=== PATIENT | female | born 1965 | race Caucasian/White ===

== ENCOUNTER 2017-01-17 12:58 | Emergency (ER) | payer OTHER ==
[~2017-01-17 12:58] MED LIST: ALBUTEROL HFA60 DOSE IN; CYCLOBENZAPRINE10 MG PO; DICLOFENAC SODI75 MG PO; NIASPAN500 MG PO; NITROSTAT0.4 MG SL; PAXIL10 MG PO
--- NOTE | 2017-01-17 15:57 | ED CLINICAL REPORT ---
Clinical Report - Physicians/Mid Levels [facility] [address] [place] [address] 01/17/2017 13:00 Patient: NKECHI DHILLON Time Seen: 1325. Arrived- By private vehicle. Historian- patient. HISTORY OF PRESENT ILLNESS Is still present and worsening. Chief Complaint: HEADACHE. This started yesterday. It was gradual in onset and has been constant but is not gone now. Patient was last known well (yesterday). Onset during rest. It is described as similar to previous headaches. Located in the right hemicranial region. No neck pain. Not located in the facial region. At its maximum, severity described as severe. When seen in the E.D., severity described as severe. Modifying factors: worsened by bright light and noise; relieved by rest. The patient has had blurred vision in the right eye. The blurred vision involving the right eye has been severe and has been associated with photophobia. She has had photophobia and nausea. No numbness, weakness or vomiting. Similar symptoms previously: Many times. Recent medical care: ( called her doctor who told her to come in. state she is out of her imitrex). Not recently seen/assessed. REVIEW OF SYSTEMS No fever or chest pain. All systems otherwise negative, except as recorded above. PAST HISTORY See nurses notes. SOCIAL HISTORY Never smoker. No alcohol use or drug use. No recent travel. Is a local resident. FAMILY HISTORY (no family hx of glaucoma). ADDITIONAL NOTES The nursing notes have been reviewed. PHYSICAL EXAM Vital Signs: 01/17/2017 13:20 BP: 186/88. HR: 87. RR: 17. O2 saturation: 96%. Temp: 98.5 F. Blood pressure normal. Oxygen saturation normal. Appearance: Alert. No acute distress. Eyes: Pupils equal, round and reactive to light. Eyes normal inspection. No conjunctival findings. (no injection. PERRLA at 4 mm and reactive. normal retinal vasculature. No papilledema. no cell and flare. eye is not steamy.). ENT: Ears normal. Nose normal. Pharynx normal. Neck: Normal inspection. Neck supple. CVS: Normal heart rate and rhythm. Heart sounds normal. Pulses normal. Respiratory: No respiratory distress. Breath sounds normal. Abdomen: Soft and nontender. No organomegaly. Back: Normal inspection. Skin: Skin warm and dry. Normal skin color. No rash. Normal skin turgor. Extremities: Extremities exhibit normal ROM. No lower extremity edema. Neuro: Oriented X 3. Alert. Mood/affect normal. Speech normal. Cranial nerves normal (as tested). No cerebellar findings. No motor deficit. No sensory deficit. Reflexes normal. PROGRESS AND PROCEDURES Course of Care: Patient is a pleasant 51 yo female presenting for evaluation of headache. Symptoms are the same as prior headaches with the same side and visual symptoms previously. Patient as been evaluated for SAH, increased ICP, meningitis, and space occupying lesion. Patients exam and history are not consistent with these entities. Patient is agreeable to treatment for headache. Medications have been ordered after reviewing allergies and intolerances. Patient will be reevaluated after the medications have been given. Patient was reevaluated and found to be significantly improved. Vision improved in eye. No concern for glaucoma. Patient reports being able to return home and follow up with doctor. Repeat examination continues to be benign. I discussed with the patient workup, diagnosis, home care, follow-up, and return precautions. All questions have been answered. The patient expressed understanding of these instructions and was agreeable to them. Do not feel patient needs to be admitted to the hospital or require further ED workup/evaluation. Disposition: Discharged. Condition: good. CLINICAL IMPRESSION 01/17/2017 15:49 BP: 169/71. HR: 75. O2 saturation: 96%. 01/17/2017 14:59 BP: 150/81. HR: 80. RR: 15. O2 saturation: 95%. Pain level now: 8/10. Hypertensive. Oxygen saturation normal. Acute migraine headache with ophthalmoplegia- poorly controlled (right sided). Essential hypertension. INSTRUCTIONS Warnings: GENERAL WARNINGS: Return or contact your physician immediately if your condition worsens or changes unexpectedly, if not improving as expected, or if other problems arise. SPECIFICALLY, return if you develop fever, vomiting, numbness, weakness, difficulty thinking, visual disturbances, fainting or extreme fatigue. Follow-up: Return to the emergency department as needed. Follow up with your doctor in two days. Reason for referral: recheck today's concerns. Summary of care provided to patient via paper. Screening today revealed the patient's blood pressure to be in the normal range. The patient should follow up with a primary care provider for blood pressure management. Understanding of the discharge instructions verbalized by patient. (Electronically signed by Frandy Tanner Dr. 01/24/2017 13:56)
--- NOTE | 2017-01-17 15:57 | ED NURSING NOTES ---
Clinical Report - Nurses [facility] [address] [place] [address] 01/17/2017 13:00 [id number] Triage time 13:14 Jan 17 2017. Acuity: LEVEL 3. Chief Complaint: VISUAL DISTURBANCES. 13:20 01/17/17. Alert. SEPSIS SCREEN: Sepsis Screen. Negative (no infection suspected/documented). FLEI COMA SCORE: [place] Coma Scale: 15- eyes open spontaneously (4); best verbal response- oriented x 4 (5); best motor response- obeys commands (6). --13:20 Caron Schmitt 13:20 01/17/17. BP: 186/88. HR: 87. RR: 17. O2 saturation: 96%. Temp: 98.5 F. Pain level now 9/10. --13:20 Caron Schmitt. Weight: 166.9 kg stated. Height/Length: 67 inches Per Patient. BMI: 57.7. --13:20 Caron Schmitt. Medications Albuterol Sulfate HFA Inhalation, as needed. Cyclobenzaprine HCl Oral 10 mg, as needed. --13:17 Caron Schmitt OxyCODONE HCl Oral 10 mg. --13:17 Caron Schmitt Diclofenac Oral 75 mg BID, usually takes at hs only. --13:18 Caron Schmitt difluoric sodium. --13:18 Caron Schmitt Qvar Inhalation, 2xdaily. --13:18 Caron Schmitt. Medication/allergy information source: the patient. --13:20 Caron Schmitt. Allergies Phenol. Toradol. (rash after taking for 6 months straight) --13:18 Caron Schmitt. History Arrived by private vehicle. Historian: patient. Accompanied by spouse. Primary physician (Caryn Lee in [place]). This started yesterday. ( Pt reports she has a "migraine" that started yesterday. Reports loss of vision in R eye. Pt reports that she has regular migraines. Last migraine with loss of vision was in 1999. Pt then started taking imitrex, stopped taking in 2003. FAST exam negative). She has had a headache. No impaired speech, trouble walking or swallowing, dizziness or weakness. No numbness. 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 PAST MEDICAL HX: No history of stroke, diabetes mellitus or hypertension. No history of seizures. Immunizations: up-to-date. SOCIAL HX: Never smoker. Occasional alcohol use. No drug use. FALL RISK ASSESSMENT: Fall risk assessment completed. No fall risk identified. NUTRITIONAL RISK ASSESSMENT: The nutritional risk assessment revealed no deficiencies. FUNCTIONAL ASSESSMENT: Functional assessment: no impairments noted. LEARNING NEEDS ASSESSMENT: The learning needs assessment revealed no barriers. SKIN INTEGRITY ASSESSMENT: Skin integrity risk assessment completed. No skin integrity risk identified. --13:20 Caron Schmitt. PROBLEMS: Chest Pain. Migraine Headache. Sarcoidosis. SI joint dysfunction, left side. Spinal L5, S1 radiculopathy left side. --13:19 Caron Schmitt. ADDITIONAL SURGERIES: Cholecystectomy. . Hernia Repair. --13:19 Caron Schmitt. Assessment The patient states feels the same. --13:20 Caron Schmitt. Interventions ID band on patient. --13:20 Caron Schmitt. PHYSICAL ASSESSMENT 13:01/17/17. Ambulatory to room. Baseline functional status: usually alert, oriented x4 and cooperative. Verbal response: usually clear and appropriate. Motor response: usually steady gait and moves all extremities equally GENERAL / NEURO / PSYCH: Awake. Oriented X 4. Alert. Appears in no acute distress. Speech normal. Mood/affect normal. Moves all extremities equally. No motor deficit. Pupillary exam: Pupils are equal, round, and reactive to light. Right pupil 3mm, round and briskly reactive to light directly. Left pupil: 3mm, round and briskly reactive to light directly. HEENT: No facial asymmetry noted. Pupils equal, round and reactive to light. Pharynx within normal limits. RESPIRATORY: Respirations not labored. CVS: Capillary refill less than 2 seconds. SKIN: Skin is intact, warm and dry. --13:21 Caron Schmitt. NURSING PROGRESS NOTES 13:01/17/17. ( Lights dimmed). --15:00 Caron Schmitt 13:22 01/17/17. The plan of care for this patient has been created. Pulse oximeter and NIBP monitor placed on patient; monitor alarms on. Head of bed elevated. Reassurance given. Two patient identifiers checked. Call light placed in reach. Side rails up x 1. Bed placed in lowest position. Brakes of bed on. Patient ready for evaluation- chart flagged and ED physician and TAKE OFF MAN notified. --13:22 Caron Schmitt 13:58 01/17/2017 Site #1 started via IV in the right hand with an 22g angiocath, with aseptic technique and good blood return; two attempts. Blood drawn: rainbow set. Labeled in the presence of the patient and sent to the lab. Saline lock flushed with 10 mL saline. --13:58 Caron Schmitt 14:07 01/17/2017 Started bag #1 1000 mL IV Fluids IV NS (Saline); at 1000 mL/hr over 1 hour(s) via site #1 via IV pump. Allergies verified and confirmed 5 rights. IV patency established. IV site checked: no pain, redness, or swelling. IV flushed thoroughly pre- and post-medication administration. --14:17 Caron Schmitt 14:09 01/17/2017 Benadryl (DiphenhydrAMINE HCl) IVP 25 mg given over 30 second(s) via site #1. Allergies verified, confirmed 5 rights and sedative warning given to the patient. IV patency established. IV site checked: no pain, redness, or swelling. IV flushed thoroughly pre- and post-medication administration. IVP given by RN. --14:17 Caron Schmitt 14:12 01/17/2017 Decadron IVP 10 mg given over 1 minute(s) via site #1. Allergies verified and confirmed 5 rights. IV patency established. IV site checked: no pain, redness, or swelling. IV flushed thoroughly pre- and post-medication administration. IVP given by RN. --14:17 Caron Schmitt 14:14 01/17/2017 Reglan (Metoclopramide HCl) IVP 10 mg given over 3 minute(s) via site #1. Allergies verified and confirmed 5 rights. IV patency established. IV site checked: no pain, redness, or swelling. IV flushed thoroughly pre- and post-medication administration. IVP given by RN. --14:17 Caron Schmitt 14:59 01/17/17. BP: 150/81. HR: 80. RR: 15. O2 saturation: 95% on room air. Pain level now: 8. --15:00 Caron Scmhitt 15:49 01/17/17. BP: 169/71. HR: 75. O2 saturation: 96% on room air. --15:49 Caron Schmitt 14:59 01/17/17. ( Pt reports that her vision is restored. Pt reports pain has improved and that her normal pain level is 8/10.). --15:59 Caron Schmitt 15:00 01/17/17. ( Warm blanket provided per patient request). --15:00 Caron Schmitt 15:10 01/17/2017 IV Fluids IV NS Discontinued: bag #1 infused. Total amount infused: 1000 mL. --16:10 Caron Schmitt. DISPOSITION / DISCHARGE 16:01/17/17. Departure time: 16:Jan 17 2017. Condition at departure: improved. The goals identified in the patient's plan of care were met. No learning barriers present. Discharge instructions provided and reviewed with the patient. Reviewed warnings (Patient verbalized awareness of warning s/sx listed in dc paperwork.). Treatments reviewed. Reviewed referral to a primary care physician for followup. Patient verbalized understanding. Written instructions provided in Kyrgyz. The patient was discharged by the physician. She was discharged home and accompanied by spouse. She left the Emergency Department ambulatory and via private vehicle. Spouse driving. FALL RISK ASSESSMENT: Fall risk assessment completed. No fall risk identified. --16:09 Caron Schmitt 16:07 01/17/17. BP: 157/79. HR: 81. RR: 14. O2 saturation: 98% on room air. Temp: 98.8 F (oral). Pain level now: 06/04. --16:09 Caron Schmitt. Locked/Released at 01/17/2017 16:11 by Caron Schmitt,
--- NOTE | 2017-01-17 15:57 | ED NURSING NOTES ---
Clinical Report - Nurses [facility] [address] [place] [address] 01/17/2017 13:00 [id number] Triage time 13:14 Jan 17 2017. Acuity: LEVEL 3. Chief Complaint: VISUAL DISTURBANCES. 13:20 01/17/17. Alert. SEPSIS SCREEN: Sepsis Screen. Negative (no infection suspected/documented). FELI COMA SCORE: [place] Coma Scale: 15- eyes open spontaneously (4); best verbal response- oriented x 4 (5); best motor response- obeys commands (6). --13:20 Caron Schmitt 13:20 01/17/17. BP: 186/88. HR: 87. RR: 17. O2 saturation: 96%. Temp: 98.5 F. Pain level now 9/10. --13:20 Caron Schmitt. Weight: 166.9 kg stated. Height/Length: 67 inches Per Patient. BMI: 57.7. --13:20 Caron Schmitt. Medications Albuterol Sulfate HFA Inhalation, as needed. Cyclobenzaprine HCl Oral 10 mg, as needed. --13:17 Caron Schmitt OxyCODONE HCl Oral 10 mg. --13:17 Caron Schmitt Diclofenac Oral 75 mg BID, usually takes at hs only. --13:18 Caron Schmitt difluoric sodium. --13:18 Caron Schmitt Qvar Inhalation, 2xdaily. --13:18 Caron Schmitt. Medication/allergy information source: the patient. --13:20 Caron Schmitt. Allergies Phenol. Toradol. (rash after taking for 6 months straight) --13:18 Caron Schmitt. History Arrived by private vehicle. Historian: patient. Accompanied by spouse. Primary physician (Caryn Lee in [place]). This started yesterday. ( Pt reports she has a "migraine" that started yesterday. Reports loss of vision in R eye. Pt reports that she has regular migraines. Last migraine with loss of vision was in 1999. Pt then started taking imitrex, stopped taking in 2003. FAST exam negative). She has had a headache. No impaired speech, trouble walking or swallowing, dizziness or weakness. No numbness. 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 PAST MEDICAL HX: No history of stroke, diabetes mellitus or hypertension. No history of seizures. Immunizations: up-to-date. SOCIAL HX: Never smoker. Occasional alcohol use. No drug use. FALL RISK ASSESSMENT: Fall risk assessment completed. No fall risk identified. NUTRITIONAL RISK ASSESSMENT: The nutritional risk assessment revealed no deficiencies. FUNCTIONAL ASSESSMENT: Functional assessment: no impairments noted. LEARNING NEEDS ASSESSMENT: The learning needs assessment revealed no barriers. SKIN INTEGRITY ASSESSMENT: Skin integrity risk assessment completed. No skin integrity risk identified. --13:20 Caron Schmitt. PROBLEMS: Chest Pain. Migraine Headache. Sarcoidosis. SI joint dysfunction, left side. Spinal L5, S1 radiculopathy left side. --13:19 Caron Schmitt. ADDITIONAL SURGERIES: Cholecystectomy. . Hernia Repair. --13:19 Caron Schmitt. Assessment The patient states feels the same. --13:20 Caron Schmitt. Interventions ID band on patient. --13:20 Caron Schmitt. PHYSICAL ASSESSMENT 13:01/17/17. Ambulatory to room. Baseline functional status: usually alert, oriented x4 and cooperative. Verbal response: usually clear and appropriate. Motor response: usually steady gait and moves all extremities equally GENERAL / NEURO / PSYCH: Awake. Oriented X 4. Alert. Appears in no acute distress. Speech normal. Mood/affect normal. Moves all extremities equally. No motor deficit. Pupillary exam: Pupils are equal, round, and reactive to light. Right pupil 3mm, round and briskly reactive to light directly. Left pupil: 3mm, round and briskly reactive to light directly. HEENT: No facial asymmetry noted. Pupils equal, round and reactive to light. Pharynx within normal limits. RESPIRATORY: Respirations not labored. CVS: Capillary refill less than 2 seconds. SKIN: Skin is intact, warm and dry. --13:21 Caron Schmitt. NURSING PROGRESS NOTES 13:01/17/17. ( Lights dimmed). --15:00 Caron Schmitt 13:22 01/17/17. The plan of care for this patient has been created. Pulse oximeter and NIBP monitor placed on patient; monitor alarms on. Head of bed elevated. Reassurance given. Two patient identifiers checked. Call light placed in reach. Side rails up x 1. Bed placed in lowest position. Brakes of bed on. Patient ready for evaluation- chart flagged and ED physician and RECORDS MANAGEMENT SPECIALIST notified. --13:22 Caron Schmitt 13:58 01/17/2017 Site #1 started via IV in the right hand with an 22g angiocath, with aseptic technique and good blood return; two attempts. Blood drawn: rainbow set. Labeled in the presence of the patient and sent to the lab. Saline lock flushed with 10 mL saline. --13:58 Caron Schmitt 14:07 01/17/2017 Started bag #1 1000 mL IV Fluids IV NS (Saline); at 1000 mL/hr over 1 hour(s) via site #1 via IV pump. Allergies verified and confirmed 5 rights. IV patency established. IV site checked: no pain, redness, or swelling. IV flushed thoroughly pre- and post-medication administration. --14:17 Caron Schmitt 14:09 01/17/2017 Benadryl (DiphenhydrAMINE HCl) IVP 25 mg given over 30 second(s) via site #1. Allergies verified, confirmed 5 rights and sedative warning given to the patient. IV patency established. IV site checked: no pain, redness, or swelling. IV flushed thoroughly pre- and post-medication administration. IVP given by RN. --14:17 Caron Schmitt 14:12 01/17/2017 Decadron IVP 10 mg given over 1 minute(s) via site #1. Allergies verified and confirmed 5 rights. IV patency established. IV site checked: no pain, redness, or swelling. IV flushed thoroughly pre- and post-medication administration. IVP given by RN. --14:17 Caron Schmitt 14:14 01/17/2017 Reglan (Metoclopramide HCl) IVP 10 mg given over 3 minute(s) via site #1. Allergies verified and confirmed 5 rights. IV patency established. IV site checked: no pain, redness, or swelling. IV flushed thoroughly pre- and post-medication administration. IVP given by RN. --14:17 Caron Schmitt 14:59 01/17/17. BP: 150/81. HR: 80. RR: 15. O2 saturation: 95% on room air. Pain level now: 8. --15:00 Caron Schmitt 15:49 01/17/17. BP: 169/71. HR: 75. O2 saturation: 96% on room air. --15:49 Caron Schmitt 14:59 01/17/17. ( Pt reports that her vision is restored. Pt reports pain has improved and that her normal pain level is 8/10.). --15:59 Caron Schmitt 15:00 01/17/17. ( Warm blanket provided per patient request). --15:00 Caron Schmitt 15:10 01/17/2017 IV Fluids IV NS Discontinued: bag #1 infused. Total amount infused: 1000 mL. --16:10 Caron Schmitt. DISPOSITION / DISCHARGE 16:01/17/17. Departure time: 16:Jan 17 2017. Condition at departure: improved. The goals identified in the patient's plan of care were met. No learning barriers present. Discharge instructions provided and reviewed with the patient. Reviewed warnings (Patient verbalized awareness of warning s/sx listed in dc paperwork.). Treatments reviewed. Reviewed referral to a primary care physician for followup. Patient verbalized understanding. Written instructions provided in Frisian. The patient was discharged by the physician. She was discharged home and accompanied by spouse. She left the Emergency Department ambulatory and via private vehicle. Spouse driving. FALL RISK ASSESSMENT: Fall risk assessment completed. No fall risk identified. --16:09 Caron Schmitt 16:07 01/17/17. BP: 157/79. HR: 81. RR: 14. O2 saturation: 98% on room air. Temp: 98.8 F (oral). Pain level now: 06/04. --16:09 Caron Schmitt. Locked/Released at 01/17/2017 16:11 by Caron Schmitt,
--- NOTE | 2017-01-17 15:58 | ED ORDER SUMMARY ---
..... Patient: NKECHI DHILLON OrderSheet [facility] VisitID: [id number] [address] [place] [address] 51y, F Registration Date/Time: 01/17/2017 ORDER SHEET Weight: 166.9 kg (stated) Allergies: Phenol, Toradol GENERAL ORDERS: Pulse oximeter (13:39 01/17/2017 Mustapha Crouch) (13:58 ASchmuck) MEDICATION ORDERS: IV FLUIDS: IV NS : initial bolus 1000 mL (1000 mL/hr), then none - for X1 (NOW) (13:38 01/17/2017 Mustapha Crouch) (14:17 ASchmuck) Benadryl IV 25 mg (NOW) (13:39 01/17/2017 Mustapha Crouch) (14:17 ASchmuck) Decadron IV 10 mg (NOW) (13:39 01/17/2017 Mustapha Crouch) (14:17 ASchmuck) Reglan IV 10 mg (NOW) (13:39 01/17/2017 Mustapha Crouch) (14:17 ASchmuck) ORDER SHEET NOTES: [Electronically signed by Caron Schmitt (16:11 01/17/2017)] [Electronically signed by Frandy Tanner Dr. (13:56 01/24/2017)] [Electronically locked/signed by Caron Schmitt (16:11 01/17/2017)]
--- NOTE | 2017-01-17 15:58 | ED ORDER SUMMARY ---
..... Patient: NKECHI DHILLON OrderSheet [facility] VisitID: [id number] [address] [place] [address] 51y, F Registration Date/Time: 01/17/2017 ORDER SHEET Weight: 166.9 kg (stated) Allergies: Phenol, Toradol GENERAL ORDERS: Pulse oximeter (13:39 01/17/2017 Mustapha Crouch) (13:58 ASchmuck) MEDICATION ORDERS: IV FLUIDS: IV NS : initial bolus 1000 mL (1000 mL/hr), then none - for X1 (NOW) (13:38 01/17/2017 Mustapha Crouch) (14:17 ASchmuck) Benadryl IV 25 mg (NOW) (13:39 01/17/2017 Mustapha Crouch) (14:17 ASchmuck) Decadron IV 10 mg (NOW) (13:39 01/17/2017 Mustapha Crouch) (14:17 ASchmuck) Reglan IV 10 mg (NOW) (13:39 01/17/2017 Mustapha Crouch) (14:17 ASchmuck) ORDER SHEET NOTES: [Electronically signed by Caron Schmitt (16:11 01/17/2017)] [Electronically signed by Frandy Tanner Dr. (13:56 01/24/2017)] [Electronically locked/signed by Caron Schmitt (16:11 01/17/2017)]
--- NOTE | 2017-01-24 13:56 | ED DISCHARGE INSTRUCTIONS ---
Patient: NKECHI DHILLON General Instructions [facility] VisitID: [id number] [address] [place] [address] 51y, F Registration Date/Time: 01/17/2017 01/17/2017 15:49 BP: 169/71. HR: 75. O2 saturation: 96%. 01/17/2017 14:59 BP: 150/81. HR: 80. RR: 15. O2 saturation: 95%. Pain level now: 07/05. Hypertensive. Oxygen saturation normal. Acute migraine headache with ophthalmoplegia- poorly controlled (right sided). Essential hypertension. INSTRUCTIONS Warnings: GENERAL WARNINGS: Return or contact your physician immediately if your condition worsens or changes unexpectedly, if not improving as expected, or if other problems arise. SPECIFICALLY, return if you develop fever, vomiting, numbness, weakness, difficulty thinking, visual disturbances, fainting or extreme fatigue. Follow-up: Return to the emergency department as needed. Follow up with your doctor in two days. Reason for referral: recheck today's concerns. Summary of care provided to patient via paper. Screening today revealed the patient's blood pressure to be in the normal range. The patient should follow up with a primary care provider for blood pressure management. Understanding of the discharge instructions verbalized by patient. ADDITIONAL INFORMATION Migraine Headache Migraine headaches are related to changes in blood flow to the brain. This causes throbbing or constant pain on one or both sides of the head. The pain may last from a few hours to several days. There is usually nausea, vomiting, sensitivity to light and sound, and blurred vision. A migraine attack may be triggered by emotional stress, hormone changes during the menstrual cycle, oral contraceptives, alcohol use, certain foods containing tyramine, eye strain, weather changes, missing meals, or too little or too much sleep. Home Care For This Headache: 1) If you were given pain medicine for this headache, do not drive yourself home . Arrange for a ride, instead. When you get home, try to sleep. You should feel much better when you wake up. 2) Migraine headaches may improve with an ice pack on the forehead or at the base of the skull. Heat to the back of your neck may relieve any neck spasm. 3) Drink only clear liquids or eat a very light diet to avoid nausea/vomiting until symptoms improve. Preventing Future Headaches: 1) Pay attention to those factors that seem to trigger your headache. Try to avoid them when you can. If you have frequent headaches, it is useful to keep a diary of what you were doing, feeling or eating in the hours before each attack. Show this to your doctor to help find the cause of your headaches. a) If you feel that stress is a factor in your headaches, look at the sources of stress in your life. Find ways to release the build-up of those stresses by using regular exercise, relaxation methods (yoga, meditation), bio-feedback or simply taking time-out for yourself. For more information about this, consult your doctor or go to a local bookstore and review books and tapes on this subject. b) Tyramine is a substance present in the following foods : chocolate, yogurt, all cheeses except cottage cheese and cream cheese. smoked or pickled fish and meat (including hook, caviar, bologna, pepperoni, salami), liver, avocados, bananas, figs, raisins, and red wine. Be aware that these foods may trigger a migraine in some persons. Try taking these foods out of your diet for 1-2 months to see if this reduces headache frequency. Treating Future Attacks: 1) At the first sign of a headache, take time out if possible. Find a quiet, dark, comfortable place to sit or lie down. Let yourself relax or sleep. 2) An ice pack on the forehead or area of greatest pain may help. If you are having muscle spasm and tightness of the neck, a heating pad and massage to this area may be helpful. 3) If you have been prescribed a medicine to stop a migraine headache, use this at the very first warning sign of the headache (aura or initial pain) for best results. Follow Up with your doctor if the headache is not better within the next 24 hours. If you have frequent headaches you should discuss a treatment plan with your primary care doctor. Ask if you can have medicine to take at home the next time you get a bad headache. Poorly controlled chronic headaches may require a referral to a neurologist (headache specialist). Get Prompt Medical Attention if any of the following occur: Your head pain gets worse, or does not improve within 24 hours Repeated vomiting (cant keep liquids down) Sinus or ear or throat pain (not already reported) Fever of 100.4 F (38 C) or higher, or as directed by your healthcare provider Stiff neck Extreme drowsiness, confusion or fainting Dizziness, vertigo (dizziness with spinning sensation) Weakness of an arm or leg or one side of the face Difficulty with speech or vision High Blood Pressure --Established High Blood Pressure (Hypertension) is a chronic disease. The cause is unknown in most cases. It can usually be controlled with lifestyle changes and/or medicines. Symptoms of high blood pressure may include headache, dizziness, visual changes, chest pain and shortness of breath. Sometimes it causes no symptoms at all. However, even if there are no symptoms, untreated high blood pressure increases the risk of heart attack, also known as acute myocardial infarction, or AMI, and stroke. It is a serious health risk and should not be ignored. A normal blood pressure is 120/80 or less. The first (top) number is the "systolic" pressure. The second (bottom) number is the "diastolic" pressure. Hypertension exists when either the top number is 140 or higher, OR the bottom number is 90 or higher on repeated measurements. Home Care: All patients with high blood pressure should do the following to lower their pressure. If you are on medicines, then these methods may reduce or eliminate your need for medicines in the future. Begin a weight loss program if you are overweight. Reduce your salt intake. Avoid high salt foods (olives, pickles, smoked meats, salted potato chips, etc.). Do not add salt to your food at the table. Use only small amounts of salt when cooking. Begin an exercise program. Discuss with your doctor what type of exercise program would be best for you. It doesn't have to be difficult. Even brisk walking for 20 minutes three times a week is a good form of exercise. Avoid medicines which contain heart stimulants. This includes many cold and sinus decongestant pills and sprays as well as diet pills. Check the warnings about hypertension on the label. Stimulants such as amphetamine or cocaine could be lethal for someone with hypertension. Never take these. Limit your caffeine intake or switch to caffeine-free products. Stop smoking. If you are a long-time smoker, this can be hard. Enroll in a stop-smoking program to improve your chance of success. Learning how to handle stress better is an important part of any program to lower blood pressure. Learn about relaxation methods such as meditation, yoga or biofeedback. If medicines were prescribed, take them exactly as directed. Missing doses may cause your blood pressure get out of control. Consider buying an automatic blood pressure machine (available at most pharmacies). Use this to monitor your blood pressure at home and report the results to your doctor. Follow Up: Regular visits to your own physician for blood pressure checks and medicine adjustment is an important part of your care. Make a follow-up appointment as directed by our staff. Get Prompt Medical Attention if any of the following occur: Chest pain or shortness of breath Severe headache Throbbing or rushing sound in the ears Nosebleed Sudden severe abdominal pain Extreme drowsiness, confusion or fainting Dizziness or vertigo (dizziness with spinning sensation) Weakness of an arm or leg or one side of the face Difficulty with speech or vision You have been given the following additional information: Headache, Migraine (Classical) Hypertension, Established (Electronically signed by Frandy Tanner Dr. 01/24/2017 13:56)
--- NOTE | 2017-01-24 13:56 | ED MED RECONCILIATION SUMMARY ---
Patient: ANGEL DHILLONRICKKELLY Murillo Medication Reconciliation Report [facility] VisitID: [id number] [address] [place] [address] 51y, F Registration Date/Time: 01/17/2017 Weight: 166.9 kg Height/Length: 67 in. BMI: 57.7 ALLERGIES: Phenol, Toradol The patient's Home Medications are listed below: THE FOLLOWING MEDICATIONS NEED TO BE RECONCILED: Albuterol Sulfate HFA Inhalation Cyclobenzaprine HCl Oral 10 mg Diclofenac Oral 75 mg BID, usually takes at hs only difluoric sodium OxyCODONE HCl Oral 10 mg Qvar Inhalation, 2xdaily The source(s) of the original Home Medication information: patient The following Medications were given to the patient in the Emergency Department: IV NS IV Fluids bolus 0, then 1000 mL/hr, administered: 01/17/2017 2:07:00 PM Benadryl [IVP] IVP 25 mg, administered: 01/17/2017 2:09:00 PM Decadron [IVP] IVP 10 mg, administered: 01/17/2017 2:12:00 PM Reglan [IVP] IVP 10 mg, administered: 01/17/2017 2:14:00 PM The following Medications were prescribed to the patient: None.
--- NOTE | 2017-01-24 13:56 | ED MED RECONCILIATION SUMMARY ---
Patient: ANGEL DHILLONRICKKELLY Murillo Medication Reconciliation Report [facility] VisitID: [id number] [address] [place] [address] 51y, F Registration Date/Time: 01/17/2017 Weight: 166.9 kg Height/Length: 67 in. BMI: 57.7 ALLERGIES: Phenol, Toradol The patient's Home Medications are listed below: THE FOLLOWING MEDICATIONS NEED TO BE RECONCILED: Albuterol Sulfate HFA Inhalation Cyclobenzaprine HCl Oral 10 mg Diclofenac Oral 75 mg BID, usually takes at hs only difluoric sodium OxyCODONE HCl Oral 10 mg Qvar Inhalation, 2xdaily The source(s) of the original Home Medication information: patient The following Medications were given to the patient in the Emergency Department: IV NS IV Fluids bolus 0, then 1000 mL/hr, administered: 01/17/2017 2:07:00 PM Benadryl [IVP] IVP 25 mg, administered: 01/17/2017 2:09:00 PM Decadron [IVP] IVP 10 mg, administered: 01/17/2017 2:12:00 PM Reglan [IVP] IVP 10 mg, administered: 01/17/2017 2:14:00 PM The following Medications were prescribed to the patient: None.
--- NOTE | 2017-01-24 13:56 | ED MAR SUMMARY ---
..... Medication Administration Record [facility] [address] [place] [address] Patient: NKECHI DHILLON Visit ID: [id number] 51y, F Weight: 166.9 kg Height/Length: 67 in BMI: 57.7 ALLERGIES: Phenol, Toradol Start 14:07 01/17/2017 Caron Schmitt,, Stop 15:10 01/17/2017 Caron Schmitt, Medication Administered: IV NS (SALINE), Dose: IV Fluids over 1 hour(s), Rate: 1000 mL/hr, Dispensed: 1000 mL bag, Site: #1 right hand. Medication Ordered: IV NS : initial bolus 1000 mL (1000 mL/hr), then none - for X1 (NOW). Given 14:09 01/17/2017 Caron Schmitt, Medication Administered: BENADRYL [IVP] (DIPHENHYDRAMINE HCL), Dose: 25 mg IVP over 30 second(s), Site: #1 right hand. Medication Ordered: Benadryl IV 25 mg (NOW). Given 14:12 01/17/2017 Caron Schmitt, Medication Administered: DECADRON [IVP], Dose: 10 mg IVP over 1 minute(s), Site: #1 right hand. Medication Ordered: Decadron IV 10 mg (NOW). Given 14:14 01/17/2017 Caron Schmitt, Medication Administered: REGLAN [IVP] (METOCLOPRAMIDE HCL), Dose: 10 mg IVP over 3 minute(s), Site: #1 right hand. Medication Ordered: Reglan IV 10 mg (NOW).
--- NOTE | 2017-01-24 13:56 | ED MAR SUMMARY ---
..... Medication Administration Record [facility] [address] [place] [address] Patient: NKECHI DHILLON Visit ID: [id number] 51y, F Weight: 166.9 kg Height/Length: 67 in BMI: 57.7 ALLERGIES: Phenol, Toradol Start 14:07 01/17/2017 Caron Schmitt,, Stop 15:10 01/17/2017 Caron Schmitt, Medication Administered: IV NS (SALINE), Dose: IV Fluids over 1 hour(s), Rate: 1000 mL/hr, Dispensed: 1000 mL bag, Site: #1 right hand. Medication Ordered: IV NS : initial bolus 1000 mL (1000 mL/hr), then none - for X1 (NOW). Given 14:09 01/17/2017 Caron Schmitt, Medication Administered: BENADRYL [IVP] (DIPHENHYDRAMINE HCL), Dose: 25 mg IVP over 30 second(s), Site: #1 right hand. Medication Ordered: Benadryl IV 25 mg (NOW). Given 14:12 01/17/2017 Caron Schmitt, Medication Administered: DECADRON [IVP], Dose: 10 mg IVP over 1 minute(s), Site: #1 right hand. Medication Ordered: Decadron IV 10 mg (NOW). Given 14:14 01/17/2017 Caron Schmitt, Medication Administered: REGLAN [IVP] (METOCLOPRAMIDE HCL), Dose: 10 mg IVP over 3 minute(s), Site: #1 right hand. Medication Ordered: Reglan IV 10 mg (NOW).
== END 2017-01-17 16:09 | disposition home or self-care (01) ==
LOC: ED SRH 12:58
DX: G43.B1 Ophthalmoplegic migraine, intractable (principal); I10 Essential (primary) hypertension